=== PATIENT | female | born 1965 | race Caucasian/White ===

== ENCOUNTER 2020-09-11 22:15 | Emergency (ER) | payer BC, OTHER ==
[2020-09-12] MEDS ORDERED: ACETAMINOPHEN 325 MG TAB PO ONE (00:26)
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
[2020-09-12 00:48] LABS: Bilirubin,Urine NEG (Negative); Blood,Urine NEG (Negative); Color,Urine Straw (Yellow); Protein,Urine <15 mg/dL mg/dL (Negative); Urobilinogen,Urine < 2.0 mg/dL (<2.0)
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
[2020-09-12 02:05] VITALS: BP 128/81
--- NOTE | 2020-09-12 09:59 | Electrocardiograph Report ---
[facility] Test Date: 2020-09-12 Test Time: 00:38:30 Pat Name: ANGELINE HUGGINS Department: Room: Gender: F Regional Agronomist: MARIA E : 1965 Requested By: TANGELA LUGO Order Number: [id number] Reading MD: Aaron Max Measurements Intervals [place] Rate: 75 P: 40 IA: 171 QRS: 55 QRSD: 88 T: 27 QT: 349 QTc: 391 Interpretive Statements Sinus rhythm No previous ECG available for comparison Electronically Signed On 09-12-2020 9:58:58 EDT by Aaron Max
== END 2020-09-12 02:30 | disposition home or self-care (01) ==
LOC: ED 22:15
DX: R07.89 Other chest pain (principal); I10 Essential (primary) hypertension; V49.49XA Driver injured in collision with other motor vehicles in traffic accident, initial encounter; Y93.89 Activity, other specified; Y92.410 Unspecified street and highway as the place of occurrence of the external cause; Y99.8 Other external cause status
CPT/HCPCS: 71046; 81001; 93005